=== PATIENT | male | born 2000 | race Caucasian/White ===

== ENCOUNTER 2022-01-23 00:23 | Emergency (ER) | payer BC ==
[2022-01-23] MEDS ORDERED: NORCO 5/325 MG PO ONE (00:48)
[2022-01-23] MEDS ORDERED: SILVADENE 50 GM TP ONE ×2 (00:49→00:54)
[2022-01-23] MEDS ORDERED: Adacel Vial IM ONE (00:54)
[2022-01-23] MEDS ORDERED: NORCO 5/325 MG ONE (00:54)
[2022-01-23] MEDS: Adacel Vial IM ONE ×2 (00:56→01:07)
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
[2022-01-23 01:12] VITALS: BP 132/91; PULSE 106; O2SAT 98
== END 2022-01-23 01:14 | disposition home or self-care (01) ==
LOC: ED 00:23
DX: T23.252A Burn of second degree of left palm, initial encounter (principal); T23.242A Burn of second degree of multiple left fingers (nail), including thumb, initial encounter; X08.8XXA Exposure to other specified smoke, fire and flames, initial encounter; Z79.891 Long term (current) use of opiate analgesic
CPT/HCPCS: 90471; 90715; 99283; A9270-GY